=== PATIENT | male | born 1955 | race Caucasian/White ===

== ENCOUNTER 2019-07-10 10:19 | Emergency (ER) | payer BC ==
[~2019-07-10] VITALS: Ht 190.5 cm; Wt 95.4 kg
[2019-07-10] MEDS ORDERED: NITROGLYCERIN SUBLINGUAL 0.4 MG BOTTLE OF 25. SL PRN (11:00)
[2019-07-10] MEDS ORDERED: ASPIRIN 325 MG TABLET PO ONE (11:00)
[2019-07-10] MEDS ORDERED: MORPHINE SULFATE 2 MG/ML VIAL. IV/SQ PRN (11:00)
[2019-07-10 11:05] LABS: BASO % 0 % (0-3); EOS % 0 % (0-3); HEMATOCRIT 49.7 % (39.0-53.0); HEMOGLOBIN 17.1 g/dL (13.0-17.5); LYMPH # 0.6 x10^3/uL (1.0-4.8); LYMPH % 8 % (24-48); MEAN CORPUSCULAR HEMOGLOBIN 28 pg (25-35); MEAN CORPUSCULAR HGB CONC 34 g/dL (31-37); MEAN CORPUSCULAR VOLUME 82 fL (79-100); MONO # 0.7 x10^3/uL (0.0-1.1); MONO % 8 % (0-9); NEUT # 7.1 x10^3/uL (1.8-7.7); NEUT % 84 % (31-73); PLATELET COUNT 210 x10^3/uL (140-400); RED BLOOD COUNT 6.05 x10^6/uL (4.30-5.70); RED CELL DISTRIBUTION WIDTH 14.2 % (11.5-14.5); WHITE BLOOD COUNT 8.4 x10^3/uL (4.0-11.0)
[2019-07-10 11:20] LABS: CALCIUM 8.9 mg/dL (8.5-10.1); CREATININE 1.4 mg/dL (0.7-1.3); POTASSIUM 4.7 mmol/L (3.5-5.1)
[2019-07-10 11:27] LABS: ALBUMIN 3.1 g/dL (3.4-5.0); ALBUMIN/GLOBULIN RATIO 0.6 (1.0-1.7); MAGNESIUM 2.2 mg/dL (1.8-2.4); TOTAL BILIRUBIN 1.3 mg/dL (0.2-1.0)
--- NOTE | 2019-07-10 11:28 | PHYS DOC ---
Past Medical History Past Medical History: Hypertension Past Surgical History: No Surgical History Smoking Status: Never Smoker Alcohol Use: None Adult General Chief Complaint Chief Complaint: COUGH HPI HPI Patient is a 64 year old male with history of hypertension who presents to the ED today complaining of a productive cough for 1-2 months. Patient is also complaining of intermittent episodes of chest pain described as sharp and worse on coughing for month. Patient rates the pain at 8 out of 10. 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 and his workmate was positive for COVID 19 Review of Systems Review of Systems Constitutional: Denies fever or chills [] Eyes: Denies change in visual acuity, redness, or eye pain [] HENT: Denies nasal congestion or sore throat [] Respiratory: Reports cough, denies shortness of breath [] Cardiovascular: Reports chest pain only on coughing GI: Denies abdominal pain, nausea, vomiting, bloody stools or diarrhea [] : Denies dysuria or hematuria [] Musculoskeletal: Denies back pain or joint pain [] Integument: Denies rash or skin lesions [] Neurologic: Denies headache, focal weakness or sensory changes [] All other systems were reviewed and found to be within normal limits, except as documented in this note. Current Medications Current Medications Current Medications Medications (Trade) Dose Ordered Sig/[facility] Start Time Stop Time Status Last Admin Dose Admin Aspirin (Wang Aspirin) 325 mg 1X ONCE 07/10/19 11:00 07/10/19 11:01 DC 07/10/19 11:09 325 MG Azithromycin 250 ml @ 250 mls/hr 1X ONCE 07/10/19 15:15 07/10/19 16:14 DC 07/10/19 15:32 250 MLS/HR Ceftriaxone Sodium (Rocephin) 1 gm 1X ONCE 07/10/19 15:15 07/10/19 15:16 DC 07/10/19 15:28 1 GM Info (CONTRAST GIVEN -- Rx MONITORING) 1 each PRN DAILY PRN 07/10/19 13:15 07/12/19 13:14 Iohexol (Omnipaque 350 Mg/ml) 80 ml 1X ONCE 07/10/19 13:15 07/10/19 13:16 DC 07/10/19 13:24 80 ML Morphine Sulfate (Morphine Sulfate) 2 mg PRN Q15MIN PRN 07/10/19 11:00 07/11/19 10:59 Nitroglycerin (Nitrostat) 0.4 mg PRN Q5MIN PRN 07/10/19 11:00 07/11/19 10:59 Sodium Chloride 1,000 ml @ 1,000 mls/hr 1X ONCE 07/10/19 15:15 07/10/19 16:14 DC 07/10/19 15:15 1,000 MLS/HR Allergies Allergies Allergies Coded Allergies Type Severity Reaction Last Updated Verified No Known Drug Allergies 07/10/19 No Physical Exam Physical Exam Constitutional: Well developed, well nourished, no acute distress, non-toxic appearance. [] HENT: Normocephalic, atraumatic, bilateral external ears normal, oropharynx moist, no oral exudates, nose normal. [] Eyes: PERRLA, EOMI, conjunctiva normal, no discharge. [] Neck: Normal range of motion, no tenderness, supple, no stridor. [] Cardiovascular:Heart rate regular rhythm, no murmur [] Lungs & Thorax: Bilateral breath sounds clear to auscultation [] Abdomen: Bowel sounds normal, soft, no tenderness, no masses, no pulsatile masses. [] Skin: Warm, dry, no erythema, no rash. [] Back: No tenderness, no CVA tenderness. [] Extremities: No tenderness, no cyanosis, no clubbing, ROM intact, no edema. [] Neurologic: Alert and oriented X 3, normal motor function, normal sensory function, no focal deficits noted. [] Psychologic: Affect normal, judgement normal, mood normal. [] Current Patient Data Vital Signs Vital Signs Date Time Temp Pulse Resp B/P (MAP) Pulse Ox O2 Delivery O2 Flow Rate FiO2 07/10/19 15:22 80 145/85 (105) 99 Room Air 07/10/19 10:56 97.5 20 97.5 Lab Values Laboratory Tests Test 07/10/19 10:45 07/10/19 10:50 07/10/19 12:42 Lactic Acid Level 2.2 mmol/L (0.4-2.0) H White Blood Count 8.4 x10^3/uL (4.0-11.0) Red Blood Count 6.05 x10^6/uL (4.30-5.70) H Hemoglobin 17.1 g/dL (13.0-17.5) Hematocrit 49.7 % (39.0-53.0) Mean Corpuscular Volume 82 fL (79-100) Mean Corpuscular Hemoglobin 28 pg (25-35) Mean Corpuscular Hemoglobin Concent 34 g/dL (31-37) Red Cell Distribution Width 14.2 % (11.5-14.5) Platelet Count 210 x10^3/uL (140-400) Neutrophils (%) (Auto) 84 % (31-73) H Lymphocytes (%) (Auto) 8 % (24-48) L Monocytes (%) (Auto) 8 % (0-9) Eosinophils (%) (Auto) 0 % (0-3) Basophils (%) (Auto) 0 % (0-3) Neutrophils # (Auto) 7.1 x10^3/uL (1.8-7.7) Lymphocytes # (Auto) 0.6 x10^3/uL (1.0-4.8) L Monocytes # (Auto) 0.7 x10^3/uL (0.0-1.1) Eosinophils # (Auto) 0.0 x10^3/uL (0.0-0.7) Basophils # (Auto) 0.0 x10^3/uL (0.0-0.2) Sodium Level 136 mmol/L (136-145) Potassium Level 4.7 mmol/L (3.5-5.1) Chloride Level 100 mmol/L (98-107) Carbon Dioxide Level 30 mmol/L (21-32) Anion Gap 6 (6-14) Blood Urea Nitrogen 21 mg/dL (8-26) Creatinine 1.4 mg/dL (0.7-1.3) H Estimated GFR (Cockcroft-Gault) 51.0 BUN/Creatinine Ratio 15 (6-20) Glucose Level 117 mg/dL (70-99) H Calcium Level 8.9 mg/dL (8.5-10.1) Magnesium Level 2.2 mg/dL (1.8-2.4) Total Bilirubin 1.3 mg/dL (0.2-1.0) H Aspartate Amino Transferase (AST) 47 U/L (15-37) H Alanine Aminotransferase (ALT) 44 U/L (16-63) Alkaline Phosphatase 55 U/L (46-116) Creatine Kinase 243 U/L (39-308) Creatine Kinase MB (Mass) 2.4 ng/mL (0.0-3.6) Creatine Kinase MB Relative Index 1.0 % (0-4) Troponin I Quantitative < 0.017 ng/mL (0.000-0.055) RP-Eog-F-Type Natriuretic Peptide 218 pg/mL (0-124) H Total Protein 8.0 g/dL (6.4-8.2) Albumin 3.1 g/dL (3.4-5.0) L Albumin/Globulin Ratio 0.6 (1.0-1.7) L Thyroid Stimulating Hormone (TSH) 1.416 uIU/mL (0.358-3.74) Urine Collection Type U cath Urine Color [place] Urine Clarity Cloudy Urine pH 6.0 (<5.0-8.0) Urine Specific [place] 1.025 (1.000-1.030) Urine Protein >=300 mg/dL (NEG-TRACE) Urine Glucose (UA) 100 mg/dL (NEG) Urine Ketones (Stick) Trace mg/dL (NEG) Urine Blood Negative (NEG) Urine Nitrite Negative (NEG) Urine Bilirubin Small (NEG) Urine Urobilinogen Dipstick 1.0 mg/dL (0.2 mg/dL) Urine Leukocyte Esterase Small (NEG) Urine RBC 0 /HPF (0-2) Urine WBC 5-10 /HPF (0-4) Urine Squamous Epithelial Cells Few /LPF Urine Amorphous Sediment Present /HPF Urine Bacteria Few /HPF (0-FEW) Urine Hyaline Casts Few /HPF Urine Granular Casts Moderate /HPF Urine Opiates Screen Neg (NEG) Urine Methadone Screen Neg (NEG) Urine Barbiturates Neg (NEG) Urine Phencyclidine Screen Neg (NEG) Urine Amphetamine/Methamphetamine Neg (NEG) Urine Benzodiazepines Screen Neg (NEG) Urine Cocaine Screen Neg (NEG) Urine Cannabinoids Screen Neg (NEG) Urine Ethyl Alcohol Neg (NEG) Laboratory Tests 07/10/19 10:50 Laboratory Tests 07/10/19 10:50 EKG EKG [address] Salinas sinus rhythm HR 85 no STEMI[] Radiology/Procedures Radiology/Procedures []PROCEDURE: PORTABLE CHEST 1V PORTABLE CHEST 1V History: Cough Comparison: None. Findings: Single view of the chest is submitted. There is suboptimal inspiration. Cardiac silhouette is considered within normal limits. There is somewhat tortuous thoracic aorta. There is mild apparent elevation of the right hemidiaphragm. No pneumothorax or dependent pleural fluid is identified. There is small focus of opacity of the mid to superior right hemithorax at level of the right posterior third and fourth ribs. Impression: 1. There is a small focus of opacity of the mid to superior right hemithorax, possible mild focal infiltrate although nodule not excluded. Short-term radiographic follow-up imaging as in [address] evaluation should be considered. Electronically signed by: Mikael Rao MD (07/10/2019 11:51 AM) [id number] DICTATED and SIGNED BY: MIKAEL RAO MD DATE: 07/10/19 1151 PROCEDURE: CT ANGIOGRAPHY CHEST Examination: CT ANGIOGRAPHY CHEST History: Chest pain, cough Comparison/Correlation: Portable chest x-ray performed earlier on the same day Findings: Axial images of the chest were obtained following IV contrast. Pulmonary arteriography protocol. Sagittal and coronal reformatted images were provided. Maximum intensity projection images provided. Pulmonary arterial vascular structures unremarkable although motion does limit evaluation mildly on multiple images of the mid to lower thoracic level. Scattered groundglass infiltrates are present at multiple levels of the lung sandoval. This is noted to be at a greater extent involving the right upper and mid thoracic level corresponding to the reported chest x-ray findings interstitial groundglass infiltrates are noted in either and some pleural lesion. [place] dependent and other linear atelectasis also is seen. No pleural effusion. No suspicious tracheobronchial tree findings. No enlarged thoracic lymph nodes. Thoracic aorta is unremarkable. Fatty infiltration of the liver is present. A 1.1 cm diameter nodule involving the left adrenal gland is suspected but low in attenuation on this contrast-enhanced exam probably representing a benign adenoma. Impression: Groundglass infiltrates which are subpleural in location multiple levels throughout the lung sandoval. These are especially present the right upper mid thoracic level but also seen otherwise. This finding is nonspecific. Viral process can account for this finding. No PE seen although this exam is mildly limited due to motion. On 07/10/2019 at 1:43 PM, discussed with the referring provider. PQRS Compliance Statement: One or more of the following individualized dose reduction techniques were utilized for this examination: 1. Automated exposure control 2. Adjustment of the mA and/or kV according to patient size 3. Use of iterative reconstruction technique Electronically signed by: Sabas Molina MD (07/10/2019 1:44 PM) [id number] DICTATED and SIGNED BY: SABAS MOLINA MD DATE: 07/10/19 1344 Course & Med Decision Making Course & Med Decision Making Pertinent Labs and Imaging studies reviewed. (See chart for details) This is a 64-year-old male patient presenting to the ED today complaining of cough for 1-2 months works at [employer] and has been exposed to Covid19. Also complaining of chest pain only on coughing. EKG is negative, troponin is normal, CBC with normal WBC, CMP with creatinine of 1.4, BUN is normal. Troponin is normal. Heart score 2 Chest x-ray was noted for possible infiltrates, follow-up CAT scan was done which was noted for -Groundglass infiltrates which are subpleural in location multiple levels throughout the lung sandoval. These are especially present the right upper mid thoracic level but also seen otherwise. This finding is nonspecific. Viral process can account for this finding. O2 sats >97 on room air, which is normal. Patient was given Rocephin 1 g in the azithromycin in the ED. I spoke with Dr. Sanchez- who recommended patient to be discharged to home with azithromycin and quarantine himselfwork for 14 days. D/c tho home with proper return precautions. Dragon Disclaimer Dragon Disclaimer This electronic medical record was generated, in whole or in part, using a voice recognition dictation system. The HEART Score for CP Pts HEART Score for Chest Pain: HEART Score for Chest Pain Response (Comments) Value History Slighlty/Non-Suspicious 0 ECG Normal 0 Age >45 - < 65 1 Risk Factors 1 or 2 Risk Factors 1 Troponin < Normal Limit 0 Total 2 Risk Factors: Risk Factors: DM, Current or recent (<one month) smoker, HTN, HLP, family history of CAD, obesity. Risk Scores: Score 0 - 3: 2.5% MACE over next 6 weeks - Discharge Home Score 4 - 6: 20.3% MACE over next 6 weeks - Admit for Clinical Observation Score 7 - 10: 72.7% MACE over next 6 weeks - Early Invasive Strategies Departure Departure Impression: Primary Impression: Bilateral pulmonary infiltrates on CXR Disposition: HOME, SELF-CARE Condition: STABLE Referrals: BELLA DE LA PAZ MD (PCP) follow up in the next 2 weeks Patient Instructions: Pneumonia, Adult Additional Instructions: You were seen in the emergency room and were noted to have pneumonia. Your work up is also concerning for COVID 19 Please isolate yourself at home for 14 days Please push fluids, maintain good hand hygiene Take Tylenol as needed for fever or pain. Do not take any ibuprofen Follow-up with your doctor in 2 weeks Come back to the ED at any point symptoms worsen Your Covid 19 test is still pending, we will call you if positive Complete your antibiotics Scripts Azithromycin (AZITHROMYCIN TABLET) 250 Mg Tablet 250 MG PO DAILY for ANTI-BIOTIC, #4 TAB 0 Refills Prov: LISA KELLY APRN 07/10/19 LISA KELLY APRN Jul 10, 2019 11:28
--- NOTE | 2019-07-10 11:30 | EKG ---
[facility] [address] [place] [address] Test Date: 2019-07-10 Test Time: 10:37:45 Pat Name: LAMINE SEBASTIAN Department: Room: Gender: M [employer]: : 1955 Requested By: LISA KELLY Order Number: [id number] Reading MD: Kulwant Adorno MD Measurements Intervals [place] Rate: 85 P: 34 IL: 128 QRS: 15 QRSD: 86 T: 26 QT: 368 QTc: 438 Interpretive Statements SINUS RHYTHM Electronically Signed On 07-10-2019 12:17:34 CDT by Kulwant Adorno MD
--- NOTE | 2019-07-10 11:53 | RAD ---
PORTABLE CHEST 1V History: Cough Comparison: None. Findings: Single view of the chest is submitted. There is suboptimal inspiration. Cardiac silhouette is considered within normal limits. There is somewhat tortuous thoracic aorta. There is mild apparent elevation of the right hemidiaphragm. No pneumothorax or dependent pleural fluid is identified. There is small focus of opacity of the mid to superior right hemithorax at level of the right posterior third and fourth ribs. Impression: 1. There is a small focus of opacity of the mid to superior right hemithorax, possible mild focal infiltrate although nodule not excluded. Short-term radiographic follow-up imaging as in [address] evaluation should be considered. Electronically signed by: Humberto Ellis MD (07/10/2019 11:51 AM) [id number]
[2019-07-10 13:05] LABS: BILIRUBIN,URINE SMALL (NEG); CLARITY,URINE CLOUDY; COLOR,URINE ORANGE; NITRITE,URINE NEGATIVE (NEG); PROTEIN,URINE >=300 mg/dL (NEG-TRACE)
[2019-07-10 13:10] LABS: BARBITURATES NEG (NEG); BENZODIAZEPINES NEG (NEG); CANNABINOIDS NEG (NEG); COCAINE NEG (NEG); METHADONE NEG (NEG); OPIATES NEG (NEG); PHENCYCLIDINE NEG (NEG)
[2019-07-10 13:12] LABS: AMPHETAMINE/METHAMPHETAMINE NEG (NEG)
[2019-07-10] MEDS ORDERED: IOHEXOL 350 MG/ML 100 ML VIAL. IV ONE (13:15)
[2019-07-10] MEDS ORDERED: CONTRAST GIVEN. MC PRN (13:15)
[2019-07-10 13:30] LABS: BACTERIA,URINE FEW /HPF (0-FEW); RBC,URINE 0 /HPF (0-2); SQUAMOUS EPITHELIAL CELL,UR FEW /LPF
[2019-07-10 13:31] LABS: GRANULAR CASTS,URINE MODERATE /HPF; HYALINE CASTS, URINE FEW /HPF
[2019-07-10 13:34] LABS: AMORPHOUS SEDIMENT,UR PRESENT /HPF
--- NOTE | 2019-07-10 13:47 | RAD ---
Examination: CT ANGIOGRAPHY CHEST History: Chest pain, cough Comparison/Correlation: Portable chest x-ray performed earlier on the same day Findings: Axial images of the chest were obtained following IV contrast. Pulmonary arteriography protocol. Sagittal and coronal reformatted images were provided. Maximum intensity projection images provided. Pulmonary arterial vascular structures unremarkable although motion does limit evaluation mildly on multiple images of the mid to lower thoracic level. Scattered groundglass infiltrates are present at multiple levels of the lung sandoval. This is noted to be at a greater extent involving the right upper and mid thoracic level corresponding to the reported chest x-ray findings interstitial groundglass infiltrates are noted in either and some pleural lesion. [place] dependent and other linear atelectasis also is seen. No pleural effusion. No suspicious tracheobronchial tree findings. No enlarged thoracic lymph nodes. Thoracic aorta is unremarkable. Fatty infiltration of the liver is present. A 1.1 cm diameter nodule involving the left adrenal gland is suspected but low in attenuation on this contrast-enhanced exam probably representing a benign adenoma. Impression: Groundglass infiltrates which are subpleural in location multiple levels throughout the lung sandoval. These are especially present the right upper mid thoracic level but also seen otherwise. This finding is nonspecific. Viral process can account for this finding. No PE seen although this exam is mildly limited due to motion. On 07/10/2019 at 1:43 PM, discussed with the referring provider. PQRS Compliance Statement: One or more of the following individualized dose reduction techniques were utilized for this examination: 1. Automated exposure control 2. Adjustment of the mA and/or kV according to patient size 3. Use of iterative reconstruction technique Electronically signed by: Sabas Clark MD (07/10/2019 1:44 PM) [id number]
[2019-07-10] MEDS ORDERED: cefTRIAXone IV Push 1 GM VIAL. IVP ONE (15:15)
[2019-07-10] MEDS ORDERED: AZITHRMYCN 500MG IVPB FOR OMNI 250 ML IV ONE (15:15)
[2019-07-10] MEDS ORDERED: IV NORMAL SALINE 1000ML BAG 1,000 ML IV ONE (15:15)
[2019-07-10 15:22] VITALS: BP 145/85
--- NOTE | 2019-07-10 16:03 | PDOC1 ---
History and Physical Date of Admission Date of Admission DATE: 07/10/19 TIME: 15:55 Identification/Chief Complaint Chief Complaint Cough with shortness of breath Source Source: Patient History of Present Illness History of Present Illness Mr Weir is a 64 yo M w/ PMHx HTN who c/o cough for 1 month. It is dry, non- productive, he is afebrile, no shortness of breath. He works at [employer], recently started there and has been exposed to Covid19 from a co-worker who tested positive. His daughter is a nurse and he came to the ED at her insistence. He did have some pleuritic chest pain on coughing. EKG is NSR, troponin is negative, CBC is WNL, CMP with creatinine of 1.4, BUN is normal. Chest x-ray was noted for possible infiltrates, follow-up CAT scan was done which was noted for -Groundglass infiltrates which are subpleural in location multiple levels throughout the lung sandoval. Patient was given Rocephin 1 g in the azithromycin in the ED. He was evaluated by [facility] in ED, who contacted myself and our bending roll operator, Dr. Ward. Given his lack of additional symptoms he was given discharged to home with azithromycin and quarantine himself and out of work for 14 days with strict instructions to return if he develops worsening symptoms or shortness of breath. Proper return precautions given Past Medical History Cardiovascular: HTN Past Surgical History Past Surgical History: No pertinent history Family History Family History: Hypertension Social History Smoke: No ALCOHOL: none Drugs: None Current Medications Current Medications Current Medications Aspirin (Wang Aspirin) 325 mg 1X ONCE PO Last administered on 07/10/19at 11:09; Start 07/10/19 at 11:00; Stop 07/10/19 at 11:01; Status DC Nitroglycerin (Nitrostat) 0.4 mg PRN Q5MIN PRN SL CP RATING > 1/10; Start 07/10/19 at 11:00; Stop 07/11/19 at 10:59 Morphine Sulfate (Morphine Sulfate) 2 mg PRN Q15MIN PRN IV/SQ PAIN GREATER THAN 3/10; Start 07/10/19 at 11:00; Stop 07/11/19 at 10:59 Iohexol (Omnipaque 350 Mg/ml) 80 ml 1X ONCE IV Last administered on 07/10/19at 13:24; Start 07/10/19 at 13:15; Stop 07/10/19 at 13:16; Status DC Info (CONTRAST GIVEN -- Rx MONITORING) 1 each PRN DAILY PRN MC SEE COMMENTS; Start 07/10/19 at 13:15; Stop 07/12/19 at 13:14 Ceftriaxone Sodium (Rocephin) 1 gm 1X ONCE IVP Last administered on 07/10/19at 15:28; Start 07/10/19 at 15:15; Stop 07/10/19 at 15:16; Status DC Azithromycin 250 ml @ 250 mls/hr 1X ONCE IV Last administered on 07/10/19at 15:32; Start 07/10/19 at 15:15; Stop 07/10/19 at 16:14 Sodium Chloride 1,000 ml @ 1,000 mls/hr 1X ONCE IV Last administered on 07/10/19at 15:15; Start 07/10/19 at 15:15; Stop 07/10/19 at 16:14 Allergies Allergies: Coded Allergies: No Known Drug Allergies (Unverified , 07/10/19) ROS General: No: Chills, Night Sweats, Fatigue, Malaise, Appetite, Other PSYCHOLOGICAL ROS: No: Anxiety, Behavioral Disorder, Concentration difficultie, Decreased libido, Depression, Disorientation, Hallucinations, Hostility, Irritablity, Memory difficulties, Mood Swings, Obsessive thoughts, Physical abuse, Sexual abuse, Sleep disturbances, Suicidal ideation, Other Eyes: No Blurry vision, No Decreased vision, No Double vision, No Dry eyes, No Excessive tearing, No Eye Pain, No Itchy Eyes, No Loss of vision, No Photophobia, No Scotomata, No Uses contacts, No Uses glasses, No Other HEENT: No: Heacaches, Visual Changes, Hearing change, Nasal congestion, Nasal discharge, Oral lesions, Sinus pain, Sore Throat, Epistaxis, Sneezing, Snoring, Tinnitus, Vertigo, Vocal changes, Other ALLERGY AND IMMUNOLOGY: No: Hives, Insect Bite Sensitivity, Itchy/Watery Eyes, Nasal Congestion, Post Nasal Drip, Seasonal Allergies, Other Hematological and Lymphatic: No: Bleeding Problems, Blood Clots, Blood Transfusions, Brusing, Night Sweats, Pallor, Swollen Lymph Nodes, Other ENDOCRINE: No: Breast Changes, Galactorrhea, Hair Pattern Changes, Hot Flashes, Malaise/lethargy, Mood Swings, Palpitations, Polydipsia/polyuria, Skin Changes, Temperature Intolerance, Unexpected Weight Changes, Other Breast: No New/Changing Breast Lumps, No Nipple changes, No Nipple discharge, No Other Respiratory: YES: Cough; No: Hemoptysis, Orthopnea, Pleuritic Pain, Shortness of breath, SOB with excertion, Sputum Changes, Stridor, Tachypnea, Wheezing, Other Cardiovascular: No Chest Pain, No Palpitations, No Orthopnea, No Paroxysmal Noc. Dyspnea, No Edema, No Lt Headedness, No Other Gastrointestinal: No Nausea, No Vomiting, No Abdominal Pain, No Diarrhea, No Constipation, No Melena, No Hematochezia, No Other Genitourinary: No Dysuria, No Frequency, No Incontinence, No Hematuria, No Retention, No Discharge, No Urgency, No Pain, No Flank Pain, No Other, No , No , No , No , No , No , No Musculoskeletal: No Gait Disturbance, No Joint Pain, No Joint Stiffness, No Joint Swelling, No Muscle Pain, No Muscular Weakness, No Pain In:, No Swelling In:, No Other Neurological: No Behavorial Changes, No Bowel/Bladder ControlChng, No Confusion, No Dizziness, No Gait Disturbance, No Headaches, No Impaired Coord/balance, No Memory Loss, No Numbness/Tingling, No Seizures, No Speech Problems, No Tremors, No Visual Changes, No Weakness, No Other Skin: No Dry Skin, No Eczema, No Hair Changes, No Lumps, No Mole Changes, No Mottling, No Nail Changes, No Pruritus, No Rash, No Skin Lesion Changes, No Other, No Acne Physical Exam General: Alert, Oriented X3, Cooperative, No acute distress HEENT: Atraumatic, PERRLA, EOMI, Mucous membr. moist/pink Lungs: Clear to auscultation, Normal air movement, Other Heart: S1S2, RRR, no thrills, no rubs, no gallops, no murmurs Abdomen: Normal bowel sounds, Soft, No tenderness, No hepatosplenomegaly, No masses Rectal Exam: not examined Extremities: No clubbing, No cyanosis, No edema, Normal pulses, No tenderness/swelling Skin: No rashes, No breakdown, No significant lesion Neuro: Normal gait, Normal speech, Strength at 5/5 X4 ext, Normal tone, Sensation intact, Cranial nerves 3-12 NL, Reflexes 2+ Psych/Mental Status: Mental status NL, Mood NL Vitals Vitals Vital Signs Date Time Temp Pulse Resp B/P (MAP) Pulse Ox O2 Delivery O2 Flow Rate FiO2 07/10/19 14:22 60 137/89 (105) 99 Room Air 07/10/19 10:56 97.5 20 97.5 Labs Labs Laboratory Tests Test 07/10/19 10:45 07/10/19 10:50 07/10/19 12:42 Lactic Acid Level 2.2 mmol/L (0.4-2.0) White Blood Count 8.4 x10^3/uL (4.0-11.0) Red Blood Count 6.05 x10^6/uL (4.30-5.70) Hemoglobin 17.1 g/dL (13.0-17.5) Hematocrit 49.7 % (39.0-53.0) Mean Corpuscular Volume 82 fL (79-100) Mean Corpuscular Hemoglobin 28 pg (25-35) Mean Corpuscular Hemoglobin Concent 34 g/dL (31-37) Red Cell Distribution Width 14.2 % (11.5-14.5) Platelet Count 210 x10^3/uL (140-400) Neutrophils (%) (Auto) 84 % (31-73) Lymphocytes (%) (Auto) 8 % (24-48) Monocytes (%) (Auto) 8 % (0-9) Eosinophils (%) (Auto) 0 % (0-3) Basophils (%) (Auto) 0 % (0-3) Neutrophils # (Auto) 7.1 x10^3/uL (1.8-7.7) Lymphocytes # (Auto) 0.6 x10^3/uL (1.0-4.8) Monocytes # (Auto) 0.7 x10^3/uL (0.0-1.1) Eosinophils # (Auto) 0.0 x10^3/uL (0.0-0.7) Basophils # (Auto) 0.0 x10^3/uL (0.0-0.2) Sodium Level 136 mmol/L (136-145) Potassium Level 4.7 mmol/L (3.5-5.1) Chloride Level 100 mmol/L (98-107) Carbon Dioxide Level 30 mmol/L (21-32) Anion Gap 6 (6-14) Blood Urea Nitrogen 21 mg/dL (8-26) Creatinine 1.4 mg/dL (0.7-1.3) Estimated GFR (Cockcroft-Gault) 51.0 BUN/Creatinine Ratio 15 (6-20) Glucose Level 117 mg/dL (70-99) Calcium Level 8.9 mg/dL (8.5-10.1) Magnesium Level 2.2 mg/dL (1.8-2.4) Total Bilirubin 1.3 mg/dL (0.2-1.0) Aspartate Amino Transf (AST/SGOT) 47 U/L (15-37) Alanine Aminotransferase (ALT/SGPT) 44 U/L (16-63) Alkaline Phosphatase 55 U/L (46-116) Creatine Kinase 243 U/L (39-308) Creatine Kinase MB (Mass) 2.4 ng/mL (0.0-3.6) Creatine Kinase MB Relative Index 1.0 % (0-4) Troponin I Quantitative < 0.017 ng/mL (0.000-0.055) [id number]-[id number]-Type Natriuretic Peptide 218 pg/mL (0-124) Total Protein 8.0 g/dL (6.4-8.2) Albumin 3.1 g/dL (3.4-5.0) Albumin/Globulin Ratio 0.6 (1.0-1.7) Thyroid Stimulating Hormone (TSH) 1.416 uIU/mL (0.358-3.74) Urine Collection Type U cath Urine Color [place] Urine Clarity Cloudy Urine pH 6.0 (<5.0-8.0) Urine Specific [place] 1.025 (1.000-1.030) Urine Protein >=300 mg/dL (NEG-TRACE) Urine Glucose (UA) 100 mg/dL (NEG) Urine Ketones (Stick) Trace mg/dL (NEG) Urine Blood Negative (NEG) Urine Nitrite Negative (NEG) Urine Bilirubin Small (NEG) Urine Urobilinogen Dipstick 1.0 mg/dL (0.2 mg/dL) Urine Leukocyte Esterase Small (NEG) Urine RBC 0 /HPF (0-2) Urine WBC 5-10 /HPF (0-4) Urine Squamous Epithelial Cells Few /LPF Urine Amorphous Sediment Present /HPF Urine Bacteria Few /HPF (0-FEW) Urine Hyaline Casts Few /HPF Urine Granular Casts Moderate /HPF Urine Opiates Screen Neg (NEG) Urine Methadone Screen Neg (NEG) Urine Barbiturates Neg (NEG) Urine Phencyclidine Screen Neg (NEG) Urine Amphetamine/Methamphetamine Neg (NEG) Urine Benzodiazepines Screen Neg (NEG) Urine Cocaine Screen Neg (NEG) Urine Cannabinoids Screen Neg (NEG) Urine Ethyl Alcohol Neg (NEG) Laboratory Tests Test 07/10/19 10:45 07/10/19 10:50 07/10/19 12:42 Lactic Acid Level 2.2 mmol/L (0.4-2.0) White Blood Count 8.4 x10^3/uL (4.0-11.0) Red Blood Count 6.05 x10^6/uL (4.30-5.70) Hemoglobin 17.1 g/dL (13.0-17.5) Hematocrit 49.7 % (39.0-53.0) Mean Corpuscular Volume 82 fL (79-100) Mean Corpuscular Hemoglobin 28 pg (25-35) Mean Corpuscular Hemoglobin Concent 34 g/dL (31-37) Red Cell Distribution Width 14.2 % (11.5-14.5) Platelet Count 210 x10^3/uL (140-400) Neutrophils (%) (Auto) 84 % (31-73) Lymphocytes (%) (Auto) 8 % (24-48) Monocytes (%) (Auto) 8 % (0-9) Eosinophils (%) (Auto) 0 % (0-3) Basophils (%) (Auto) 0 % (0-3) Neutrophils # (Auto) 7.1 x10^3/uL (1.8-7.7) Lymphocytes # (Auto) 0.6 x10^3/uL (1.0-4.8) Monocytes # (Auto) 0.7 x10^3/uL (0.0-1.1) Eosinophils # (Auto) 0.0 x10^3/uL (0.0-0.7) Basophils # (Auto) 0.0 x10^3/uL (0.0-0.2) Sodium Level 136 mmol/L (136-145) Potassium Level 4.7 mmol/L (3.5-5.1) Chloride Level 100 mmol/L (98-107) Carbon Dioxide Level 30 mmol/L (21-32) Anion Gap 6 (6-14) Blood Urea Nitrogen 21 mg/dL (8-26) Creatinine 1.4 mg/dL (0.7-1.3) Estimated GFR (Cockcroft-Gault) 51.0 BUN/Creatinine Ratio 15 (6-20) Glucose Level 117 mg/dL (70-99) Calcium Level 8.9 mg/dL (8.5-10.1) Magnesium Level 2.2 mg/dL (1.8-2.4) Total Bilirubin 1.3 mg/dL (0.2-1.0) Aspartate Amino Transf (AST/SGOT) 47 U/L (15-37) Alanine Aminotransferase (ALT/SGPT) 44 U/L (16-63) Alkaline Phosphatase 55 U/L (46-116) Creatine Kinase 243 U/L (39-308) Creatine Kinase MB (Mass) 2.4 ng/mL (0.0-3.6) Creatine Kinase MB Relative Index 1.0 % (0-4) Troponin I Quantitative < 0.017 ng/mL (0.000-0.055) [id number]-Type Natriuretic Peptide 218 pg/mL (0-124) Total Protein 8.0 g/dL (6.4-8.2) Albumin 3.1 g/dL (3.4-5.0) Albumin/Globulin Ratio 0.6 (1.0-1.7) Thyroid Stimulating Hormone (TSH) 1.416 uIU/mL (0.358-3.74) Urine Collection Type U cath Urine Color [place] Urine Clarity Cloudy Urine pH 6.0 (<5.0-8.0) Urine Specific [place] 1.025 (1.000-1.030) Urine Protein >=300 mg/dL (NEG-TRACE) Urine Glucose (UA) 100 mg/dL (NEG) Urine Ketones (Stick) Trace mg/dL (NEG) Urine Blood Negative (NEG) Urine Nitrite Negative (NEG) Urine Bilirubin Small (NEG) Urine Urobilinogen Dipstick 1.0 mg/dL (0.2 mg/dL) Urine Leukocyte Esterase Small (NEG) Urine RBC 0 /HPF (0-2) Urine WBC 5-10 /HPF (0-4) Urine Squamous Epithelial Cells Few /LPF Urine Amorphous Sediment Present /HPF Urine Bacteria Few /HPF (0-FEW) Urine Hyaline Casts Few /HPF Urine Granular Casts Moderate /HPF Urine Opiates Screen Neg (NEG) Urine Methadone Screen Neg (NEG) Urine Barbiturates Neg (NEG) Urine Phencyclidine Screen Neg (NEG) Urine Amphetamine/Methamphetamine Neg (NEG) Urine Benzodiazepines Screen Neg (NEG) Urine Cocaine Screen Neg (NEG) Urine Cannabinoids Screen Neg (NEG) Urine Ethyl Alcohol Neg (NEG) Images Images CXR - There is suboptimal inspiration. Cardiac silhouette is considered within normal limits. There is somewhat tortuous thoracic aorta. There is mild apparent elevation of the right hemidiaphragm. No pneumothorax or dependent pleural fluid is identified. There is small focus of opacity of the mid to superior right hemithorax at level of the right posterior third and fourth ribs. Impression: There is a small focus of opacity of the mid to superior right hemithorax, possible mild focal infiltrate although nodule not excluded. Short-term radiographic follow-up imaging as in [address] evaluation should be considered. VTE Prophylaxis Ordered VTE Prophylaxis Devices: No VTE Pharmacological Prophylaxi: No Assessment/Plan Assessment/Plan A/P: Cough - likely viral vs mycoplasma, given azithromycin and strict return instructions. COVID 19 testing sent, pending though [facility] HTN - cont home meds Dispo - home with 14 quarantine isolation, self care. LAMONTE GUTIERREZ MD Jul 10, 2019 16:03
[2019-07-10] MEDS ORDERED: AZIT250T6 PO (16:34)
== END 2019-07-10 17:03 | disposition home or self-care (01) ==
LOC: ER 10:19
DX: B97.29 Other coronavirus as the cause of diseases classified elsewhere (principal); R91.8 Other nonspecific abnormal finding of lung field; R07.89 Other chest pain; I10 Essential (primary) hypertension; Z79.82 Long term (current) use of aspirin; Z98.890 Other specified postprocedural states; Z20.828 Contact with and (suspected) exposure to other viral communicable diseases
CPT/HCPCS: 36415; 71045; 71275; 80053; 80307; 81001; 82553; 83605; 83735; 83880; 84443; 84484; 85025; 87040; 87635; 93005; 96365; 96375; 99285; J0456; J0696; J7030; Q9967